=== PATIENT | male | born 1935 | race Caucasian/White ===

== ENCOUNTER 2017-10-20 08:55 | Outpatient (CLI) | payer MEDICARE, BC ==
[~2017-10-20 08:55] MED LIST: ALBU18HF2 INH; ALBU2.5V12 NEB; ALBU8.5H8 IH; BUDE10.2 IH; CALC-1021 PO; CELE-85 PO; CHOL400C8 PO; COU5T PO; DOCU-28 PO; FERR134T2 PO; FLUT16SP26 BOTHNARES; FURO20TA4 PO; HYDR473S48 PO; MONT10TA24 PO; POTA20TA19 PO; QUIN324C PO; [UNRECOGNIZED DRUG - OTHER] PO
[2017-10-20] MEDS ORDERED: mupirocin 2% ointment 22GM ONE (10:25)
== END 2017-10-20 10:32 | disposition home or self-care (01) ==
LOC: WOUND CARE 08:55 → EDSTATUS 09:00 → WOUND CARE 10:32
PROVIDERS: ATTEND Surgery
DX: S81.801D Unspecified open wound, right lower leg, subsequent encounter (principal); I87.2 Venous insufficiency (chronic) (peripheral); M81.0 Age-related osteoporosis without current pathological fracture; I25.10 Atherosclerotic heart disease of native coronary artery without angina pectoris; J44.9 Chronic obstructive pulmonary disease, unspecified; I11.0 Hypertensive heart disease with heart failure; I50.9 Heart failure, unspecified; E66.9 Obesity, unspecified; M17.9 Osteoarthritis of knee, unspecified; Z87.891 Personal history of nicotine dependence; Z85.828 Personal history of other malignant neoplasm of skin; Z79.01 Long term (current) use of anticoagulants; Z68.39 Body mass index [BMI] 39.0-39.9, adult; Z98.42 Cataract extraction status, left eye; Z98.41 Cataract extraction status, right eye; Z86.711 Personal history of pulmonary embolism; Z95.1 Presence of aortocoronary bypass graft; X58.XXXD Exposure to other specified factors, subsequent encounter
CPT/HCPCS: 99215; A6212

== ENCOUNTER 2017-10-26 09:45 | Outpatient (CLI) | payer MEDICARE, BC ==
[2017-10-26] MEDS ORDERED: LIDOcaine 2% 5ml jelly ONE (09:46)
== END 2017-10-26 10:13 | disposition home or self-care (01) ==
LOC: WOUND CARE 09:45 → EDSTATUS 10:00 → WOUND CARE 10:13
PROVIDERS: ATTEND Surgery
DX: S81.801D Unspecified open wound, right lower leg, subsequent encounter (principal); I87.2 Venous insufficiency (chronic) (peripheral); M81.0 Age-related osteoporosis without current pathological fracture; I25.10 Atherosclerotic heart disease of native coronary artery without angina pectoris; J44.9 Chronic obstructive pulmonary disease, unspecified; I11.0 Hypertensive heart disease with heart failure; I50.9 Heart failure, unspecified; E66.9 Obesity, unspecified; M17.9 Osteoarthritis of knee, unspecified; Z87.891 Personal history of nicotine dependence; Z85.828 Personal history of other malignant neoplasm of skin; Z79.01 Long term (current) use of anticoagulants; Z68.39 Body mass index [BMI] 39.0-39.9, adult; Z98.42 Cataract extraction status, left eye; Z98.41 Cataract extraction status, right eye; Z86.711 Personal history of pulmonary embolism; Z95.1 Presence of aortocoronary bypass graft; X58.XXXD Exposure to other specified factors, subsequent encounter
CPT/HCPCS: 99214

== ENCOUNTER 2019-03-06 05:34 | Inpatient (IN) | payer MEDICARE, BC ==
[2019-02-27 12:04] LABS: BASOPHILS % (AUTO) 0.5 % (0-1); EOSINOPHILS # (AUTO) 0.1 X10'3 (0-0.9); EOSINOPHILS % (AUTO) 1.1 % (0-6); LYMPHOCYTES # (AUTO) 1.3 X10'3 (1.1-4.8); LYMPHOCYTES % (AUTO) 22.8 % (21-51); MEAN CORPUSCULAR HEMOGLOBIN 28.5 PG (27.0-31.0); MEAN CORPUSCULAR HGB CONC 33.5 g/dL (33.0-36.5); MEAN CORPUSCULAR VOLUME 84.9 FL (78-98); MEAN PLATELET VOLUME 7.4 FL (7.4-10.4); MONOCYTES # (AUTO) 0.5 X10'3 (0-0.9); MONOCYTES % (AUTO) 8.3 % (2-12); NEUTROPHILS # (AUTO) 3.8 X10'3 (1.8-7.7); NEUTROPHILS % (AUTO) 67.3 % (42-75); PRE OP HEMATOCRIT 45.2 % (42.0-52.0); PRE OP HEMOGLOBIN 15.2 g/dL (14.0-17.9); PRE OP PLATELET COUNT 192 X10'3 (140-440); RED BLOOD COUNT 5.33 X10'6 (4.70-6.10); RED CELL DISTRIBUTION WIDTH 14.6 % (11.5-14.5)
[2019-02-27 12:18] LABS: PRE OP PROTIME 10.9 SECONDS (9.0-12.0)
[2019-02-27 12:21] LABS: ALBUMIN 3.8 G/DL (3.4-5.0); ALKALINE PHOSPHATASE 67 IU/L (46-116); BLOOD UREA NITROGEN 16 MG/DL (7-18); BUN/CREATININE RATIO 19.5 (5.4-32.0); CALCIUM 9.3 MG/DL (8.5-10.1); CHLORIDE 108 MMOL/L (99-107); CREATININE 0.82 MG/DL (0.60-1.10); PRE OP ALT 23 U/L (30-65); PRE OP ANION GAP 8 (8-16); PRE OP AST 19 U/L (10-37); PRE OP BILIRUB, TOTAL 0.6 MG/DL (0.0-1.0); PRE OP GLUCOSE 118 MG/DL (70-104); PRE OP POTASSIUM 3.9 MMOL/L (3.4-5.1); PRE OP SODIUM 144 MMOL/L (135-145); TOTAL CARBON DIOXIDE 28.4 MMOL/L (24-32); TOTAL PROTEIN 7.5 G/DL (6.4-8.2); eGFR 90 ML/MIN
[~2019-03-06] VITALS: Ht 193 cm; Wt 136.4 kg
[2019-03-06] VITALS (19 sets, daily range): BP systolic 120–165; BP diastolic 57–89
[~2019-03-06 05:34] MED LIST changes: -ALBU18HF2 INH; -ALBU8.5H8 IH; -CALC-1021 PO; -CHOL400C8 PO; -COU5T PO; -DOCU-28 PO; -FERR134T2 PO; +FLO0.4C PO; -FLUT16SP26 BOTHNARES; +GUAI600T45 PO; -[UNRECOGNIZED DRUG - OTHER] PO; +ceFAZolin inj. 3,000 MG in normal saline 100ml IV soln 100 ML IV ONE; +famotidine 20mg tablet PO ONE; +ringers solution, lacted 1,000 ML IV SCH; +tranexamic acid inj. 1,000 MG in normal saline 100 ML IV ONE; +vancomycin inj 1,500 MG in normal saline 300ml IV soln IV ONE
[2019-03-06] MEDS ORDERED: tranexamic acid 100mg/ml inj. IV ONE (06:00)
[2019-03-06] MEDS ORDERED: ceFAZolin 1GM/D5W- ADD-VANTAGE 50 ML IV ONE (06:00)
[2019-03-06] MEDS ORDERED: LIDOcaine 1% (10mg/ml) 2ml vial ONE (06:23)
[2019-03-06] MEDS ORDERED: ceFAZolin 1000mg inj ONE (06:38)
[2019-03-06] MEDS ORDERED: cefazolin/dext.iso 2gm/50ml 50 ML IV ONE (06:50)
[2019-03-06] MEDS ORDERED: ringers solution, lacted 1,000 ML IV SCH (07:18)
[2019-03-06] MEDS ORDERED: ROPIVAcaine 0.2%/PF PAIN PUMP 400 ML ADDCANAL SCH (07:18)
[2019-03-06] MEDS ORDERED: tetracaine 1% (10mg/ml) pres. free inj. ONE (07:20)
[2019-03-06] MEDS ORDERED: morphine 4 MG/ML inj SYRINge IV PRN ×2 (07:20)
[2019-03-06] MEDS ORDERED: ondansetron/PF 4mg/2ml inj IV PRN ×3 (07:20→10:25)
[2019-03-06] MEDS ORDERED: labetalol 20mg/4ml (5mg/ml) syringe IV PRN (07:20)
[2019-03-06] MEDS ORDERED: fentaNYL/PF 50MCG/1 ML 2ML syringe IV PRN ×2 (07:20)
[2019-03-06] MEDS ORDERED: hydrALAZINE 20mg/ml inj. IV PRN (07:20)
[2019-03-06] MEDS ORDERED: MIDAZolam 1mg/ml 10ml vial ONE (07:22)
[2019-03-06] MEDS ORDERED: fentaNYL/PF 50MCG/1 ML 2ML syringe ONE (07:22)
[2019-03-06] MEDS ORDERED: morphine /PF 1mg/ml 10ml inj. ONE (07:22)
[2019-03-06] MEDS ORDERED: propofol inj 20 ML IV ONE ×2 (07:35)
[2019-03-06] MEDS ORDERED: LIDOcaine 2% (20mg/ml) 5ml vial ONE (07:35)
[2019-03-06] MEDS ORDERED: ROPIVAcaine 0.5% (5mg/ml) 30ml vial ONE (08:00)
[2019-03-06] MEDS ORDERED: diphenhydrAMINE 50 mg/ml inj IV PRN (08:05)
[2019-03-06] MEDS ORDERED: bisacodyl 10mg suppository rectal RC PRN (10:25)
[2019-03-06] MEDS ORDERED: diphenhydrAMINE 25mg capsule PO PRN (10:25)
[2019-03-06] MEDS ORDERED: HYDROmorphone 1 mg/ml syringe IV PRN (10:25)
[2019-03-06] MEDS ORDERED: HYDROcodone/acetaminophen 10/325mg tab PO PRN (10:25)
[2019-03-06] MEDS ORDERED: magnesium hydroxide 30ml (MOM) UD suspension PO PRN (10:25)
--- NOTE | 2019-03-06 10:25 | NUR ---
Received from OR via , accompanied by Anesthesiologist DR SIMONS and report given by Anesthesiolgist. AWAKE AND MACKENZIE PAIN. VITALS STABLE. DRESSING DI. SENSATION AT THE HIPS. OCHOA WITH LIGHT GUIDO COLORED URINE.
[2019-03-06] MEDS: ROPIVAcaine 0.2%/PF PAIN PUMP 550 ML INTERSCALE SCH ×2 (10:46→19:20)
--- NOTE | 2019-03-06 11:25 | NUR ---
Report called to receiving nurse. Transferred via BED Belongings . Special Issues communicated to receiving nurse. AWAKE AND ORIENTED. VITALS STABLE. DRESSING DI. MACKENZIE PAIN. TO ORTHO RM 4023B AT THIS TIME.
[2019-03-06] MEDS: potassium Cl 20mEq in NS 1,000 ML IV SCH (11:29)
[2019-03-06] MEDS ORDERED: hydrOXYzine 10 MG tablet PO PRN (13:40)
[2019-03-06] MEDS ORDERED: furosemide 20MG tablet PO ONE (15:05)
[2019-03-06] MEDS: ceFAZolin 1GM/D5W- ADD-VANTAGE 50 ML IV SCH ×2 (15:16→23:40)
[2019-03-06] MEDS ORDERED: aspirin 325mg tablet PO SCH (17:30)
[2019-03-06] MEDS ORDERED: vancomycin/NS 1 GM ADD-VANTAGE 250 ML IV SCH (20:00)
[2019-03-06] MEDS: budesonide 0.5mg/2ml UD nebule IH SCH (20:00)
[2019-03-06] MEDS: guaiFENesin ER 600mg tablet PO SCH (20:24)
[2019-03-06] MEDS: celeCOXIB 100mg capsule PO SCH (20:24)
[2019-03-06] MEDS: sennosides 8.6mg tablet PO SCH (20:24)
[2019-03-06] MEDS: montelukast 10mg tablet PO SCH (20:24)
[2019-03-06] MEDS: HYDROcodone/acetaminophen 10/325mg tab PO PRN (20:31)
[2019-03-07] VITALS (7 sets, daily range): BP systolic 98–142; BP diastolic 45–75
--- NOTE | 2019-03-07 06:00 | NUR ---
Recieved report from Nemo DURAN. Pt awake in room awaiting PT.
[2019-03-07 06:02] LABS: BASOPHILS % (AUTO) 0.2 % (0-1); EOSINOPHILS # (AUTO) 0.1 X10'3 (0-0.9); EOSINOPHILS % (AUTO) 0.7 % (0-6); HEMATOCRIT 37.1 % (42.0-52.0); HEMOGLOBIN 12.3 g/dl (14.0-17.9); LYMPHOCYTES % (AUTO) 13.3 % (21-51); MEAN CORPUSCULAR HEMOGLOBIN 28.2 PG (27.0-31.0); MEAN CORPUSCULAR HGB CONC 33.2 g/dL (33.0-36.5); MEAN PLATELET VOLUME 7.7 FL (7.4-10.4); MONOCYTES % (AUTO) 12.4 % (2-12); NEUTROPHILS # (AUTO) 5.7 X10'3 (1.8-7.7); NEUTROPHILS % (AUTO) 73.4 % (42-75); PLATELET COUNT 166 X10'3 (140-440); RED BLOOD COUNT 4.36 X10'6 (4.70-6.10); RED CELL DISTRIBUTION WIDTH 14.3 % (11.5-14.5); WHITE BLOOD COUNT 7.8 X10'3 (4.5-11.0)
--- NOTE | 2019-03-07 06:18 | NUR ---
REPORT GIVEN TO RENEE MONACO.
[2019-03-07 06:46] LABS: ALANINE AMINOTRANSFERASE 19 U/L (12-78); ALBUMIN 2.9 G/DL (3.4-5.0); ALBUMIN/GLOBULIN RATIO 0.9 (1.1-1.5); ALKALINE PHOSPHATASE 54 IU/L (46-116); ANION GAP 6 (8-16); ASPARTATE AMINO TRANSFERASE 17 U/L (10-37); BILIRUBIN,TOTAL 1.2 MG/DL (0.1-1.0); BLOOD UREA NITROGEN 14 MG/DL (7-18); BUN/CREATININE RATIO 14.3 (5.4-32.0); CHLORIDE 105 MMOL/L (99-107); CREATININE 0.98 MG/DL (0.60-1.10); GLUCOSE 114 MG/DL (70-104); POTASSIUM 4.3 MMOL/L (3.5-5.1); SODIUM 141 MMOL/L (135-145); TOTAL CARBON DIOXIDE 30.1 MMOL/L (24-32); eGFR 73 ML/MIN
[2019-03-07] MEDS: potassium Cl 20mEq in NS 1,000 ML IV SCH ×3 (07:02→16:22)
[2019-03-07] MEDS: guaiFENesin ER 600mg tablet PO SCH ×2 (08:00→20:58)
[2019-03-07] MEDS: celeCOXIB 100mg capsule PO SCH ×2 (08:30→20:58)
[2019-03-07] MEDS: furosemide 20MG tablet PO SCH (08:32)
[2019-03-07] MEDS: potassium Cl 20 mEq SR tablet PO SCH (08:33)
[2019-03-07] MEDS: tamsulosin 0.4mg capsule PO SCH (08:34)
[2019-03-07] MEDS: aspirin 81mg tab.chew PO SCH ×2 (08:37→16:48)
[2019-03-07] MEDS: budesonide 0.5mg/2ml UD nebule IH SCH ×2 (09:03→19:38)
[2019-03-07] MEDS: albuterol 2.5 MG/3 ML nebule NEB PRN ×2 (09:03→19:38)
--- NOTE | 2019-03-07 09:46 | NUR ---
Joint replacement consult: Pt PO 50-75% avg few meals so far post-op. LBM 03/06. Pt reports lower PO at home recently r/t fear of constipation post-op which has happened on prior surgeries. Pt/SO seen by RD for written/verbal high protein ed w/ RD contact information provided. Pt agrees to vanilla ensure pudding TIDWM; dietary notified. Addendum: 03/07/19 at [address] Amended: Links added.
[2019-03-07] MEDS: HYDROcodone/acetaminophen 10/325mg tab PO PRN ×2 (10:23→19:21)
--- NOTE | 2019-03-07 12:15 | NUR ---
Student Medication Administration:For this medication-pass time frame [id number], all medications were reviewed,administered and documented per hospital policy by Cheryl Webb. Student documentation:I have reviewed and agree with all interventions, assessments performed and documented by Cheryl Webb.
--- NOTE | 2019-03-07 12:21 | NUR ---
Reported patient back to Coleen DURAN.
--- NOTE | 2019-03-07 12:36 | NUR ---
BLADDER SCAN PT, 386ML. PLACED OCHOA 16 SLOVAK PER PROTOCOL. PT TOLERATED WELL.
[2019-03-07] MEDS: montelukast 10mg tablet PO SCH (20:57)
[2019-03-07] MEDS: sennosides 8.6mg tablet PO SCH (20:58)
[2019-03-07] MEDS: diphenhydrAMINE 25mg capsule PO PRN (20:59)
[2019-03-07] MEDS: acetaminophen 325mg tablet PO PRN (22:48)
[2019-03-08] MEDS: potassium Cl 20mEq in NS 1,000 ML IV SCH
[2019-03-08] MEDS: HYDROcodone/acetaminophen 10/325mg tab PO PRN ×2 (05:14→10:30)
[2019-03-08] MEDS: ROPIVAcaine 0.2%/PF PAIN PUMP 550 ML INTERSCALE SCH (05:15)
--- NOTE | 2019-03-08 05:20 | NUR ---
placed new ropivacaine ball. started at 10cc/hr
[2019-03-08] MEDS: acetaminophen 325mg tablet PO PRN ×3 (05:38→23:41)
[2019-03-08 06:00] VITALS: BP 132/62
[2019-03-08 06:05] LABS: BASOPHILS % (AUTO) 0.2 % (0-1); EOSINOPHILS % (AUTO) 0.2 % (0-6); HEMATOCRIT 36.3 % (42.0-52.0); HEMOGLOBIN 12.3 g/dl (14.0-17.9); LYMPHOCYTES # (AUTO) 0.4 X10'3 (1.1-4.8); LYMPHOCYTES % (AUTO) 7.6 % (21-51); MEAN CORPUSCULAR HEMOGLOBIN 28.9 PG (27.0-31.0); MEAN CORPUSCULAR HGB CONC 33.9 g/dL (33.0-36.5); MEAN CORPUSCULAR VOLUME 85.4 FL (78-98); MEAN PLATELET VOLUME 7.7 FL (7.4-10.4); MONOCYTES # (AUTO) 0.6 X10'3 (0-0.9); NEUTROPHILS # (AUTO) 4.6 X10'3 (1.8-7.7); PLATELET COUNT 143 X10'3 (140-440); RED BLOOD COUNT 4.26 X10'6 (4.70-6.10); RED CELL DISTRIBUTION WIDTH 14.6 % (11.5-14.5); WHITE BLOOD COUNT 5.6 X10'3 (4.5-11.0)
--- NOTE | 2019-03-08 06:31 | NUR ---
Problems reprioritized. Patient report given, questions answered & plan of care reviewed with RENEE ESQUIVEL.
--- NOTE | 2019-03-08 06:33 | NUR ---
Patient in room ORTHO 4021. I have received report from Tierra DURAN and had the opportunity to ask questions and assume patient care.
[2019-03-08 06:48] LABS: ALANINE AMINOTRANSFERASE 19 U/L (12-78); ALBUMIN 2.7 G/DL (3.4-5.0); ALBUMIN/GLOBULIN RATIO 0.8 (1.1-1.5); ALKALINE PHOSPHATASE 51 IU/L (46-116); ANION GAP 7 (8-16); ASPARTATE AMINO TRANSFERASE 19 U/L (10-37); BILIRUBIN,TOTAL 1.1 MG/DL (0.1-1.0); BLOOD UREA NITROGEN 17 MG/DL (7-18); CALCIUM 8.5 MG/DL (8.5-10.1); CHLORIDE 106 MMOL/L (99-107); CREATININE 0.85 MG/DL (0.60-1.10); GLUCOSE 121 MG/DL (70-104); POTASSIUM 4.1 MMOL/L (3.5-5.1); SODIUM 139 MMOL/L (135-145); TOTAL PROTEIN 6.1 G/DL (6.4-8.2); eGFR 87 ML/MIN
[2019-03-08] MEDS: budesonide 0.5mg/2ml UD nebule IH SCH ×2 (07:36→20:00)
[2019-03-08] MEDS: albuterol 2.5 MG/3 ML nebule NEB PRN (07:36)
[2019-03-08] MEDS: celeCOXIB 100mg capsule PO SCH ×2 (08:21→20:29)
[2019-03-08] MEDS: tamsulosin 0.4mg capsule PO SCH (08:21)
[2019-03-08] MEDS: furosemide 20MG tablet PO SCH (08:21)
[2019-03-08] MEDS: aspirin 81mg tab.chew PO SCH ×2 (08:21→17:54)
[2019-03-08] MEDS: guaiFENesin ER 600mg tablet PO SCH ×2 (08:22→20:29)
[2019-03-08] MEDS: potassium Cl 20 mEq SR tablet PO SCH (08:22)
[2019-03-08 10:00] VITALS: BP 135/47
[2019-03-08 18:00] VITALS: BP 124/63
[2019-03-08] MEDS ORDERED: acetaminophen 325mg tablet PO PRN (18:00)
--- NOTE | 2019-03-08 18:12 | NUR ---
Problems reprioritized. Patient report given, questions answered & plan of care reviewed with Tierra DURAN.
--- NOTE | 2019-03-08 18:21 | NUR ---
Problems reprioritized. Patient report given, questions answered & plan of care reviewed with RENEE ESQUIVEL.
[2019-03-08] MEDS: montelukast 10mg tablet PO SCH (20:29)
[2019-03-08] MEDS: diphenhydrAMINE 25mg capsule PO PRN (20:32)
[2019-03-08] MEDS: sennosides 8.6mg tablet PO SCH (21:00)
[2019-03-08 22:09] VITALS: BP 163/72
[2019-03-09] MEDS: acetaminophen 325mg tablet PO PRN (05:21)
[2019-03-09 05:54] LABS: BASOPHILS % (AUTO) 0.2 % (0-1); EOSINOPHILS # (AUTO) 0.1 X10'3 (0-0.9); EOSINOPHILS % (AUTO) 1.1 % (0-6); HEMATOCRIT 36.9 % (42.0-52.0); HEMOGLOBIN 12.4 g/dl (14.0-17.9); LYMPHOCYTES # (AUTO) 0.8 X10'3 (1.1-4.8); LYMPHOCYTES % (AUTO) 14.5 % (21-51); MEAN CORPUSCULAR HEMOGLOBIN 28.7 PG (27.0-31.0); MEAN CORPUSCULAR HGB CONC 33.5 g/dL (33.0-36.5); MEAN CORPUSCULAR VOLUME 85.5 FL (78-98); MONOCYTES # (AUTO) 0.7 X10'3 (0-0.9); MONOCYTES % (AUTO) 13.7 % (2-12); NEUTROPHILS # (AUTO) 3.8 X10'3 (1.8-7.7); NEUTROPHILS % (AUTO) 70.5 % (42-75); PLATELET COUNT 186 X10'3 (140-440); RED BLOOD COUNT 4.31 X10'6 (4.70-6.10); RED CELL DISTRIBUTION WIDTH 14.1 % (11.5-14.5); WHITE BLOOD COUNT 5.4 X10'3 (4.5-11.0)
[2019-03-09 06:00] VITALS: BP 148/70
[2019-03-09] MEDS ORDERED: cefazolin/dext.iso 2gm/50ml 50 ML IV ONE (06:00)
--- NOTE | 2019-03-09 06:15 | NUR ---
Problems reprioritized. Patient report given, questions answered & plan of care reviewed with RENEE ESQUIVEL.
[2019-03-09 06:18] LABS: ALANINE AMINOTRANSFERASE 21 U/L (12-78); ALBUMIN 2.8 G/DL (3.4-5.0); ALBUMIN/GLOBULIN RATIO 0.7 (1.1-1.5); ALKALINE PHOSPHATASE 55 IU/L (46-116); ANION GAP 6 (8-16); ASPARTATE AMINO TRANSFERASE 21 U/L (10-37); BILIRUBIN,TOTAL 0.7 MG/DL (0.1-1.0); BLOOD UREA NITROGEN 14 MG/DL (7-18); BUN/CREATININE RATIO 18.7 (5.4-32.0); CALCIUM 8.6 MG/DL (8.5-10.1); CHLORIDE 105 MMOL/L (99-107); CREATININE 0.75 MG/DL (0.60-1.10); GLUCOSE 102 MG/DL (70-104); POTASSIUM 3.9 MMOL/L (3.5-5.1); SODIUM 139 MMOL/L (135-145); TOTAL CARBON DIOXIDE 27.6 MMOL/L (24-32); TOTAL PROTEIN 6.6 G/DL (6.4-8.2); eGFR > 90 ML/MIN
--- NOTE | 2019-03-09 06:33 | NUR ---
Patient in room ORTHO 4021. I have received report from Tierra DURAN and had the opportunity to ask questions and assume patient care.
[2019-03-09] MEDS: aspirin 81mg tab.chew PO SCH (07:25)
[2019-03-09] MEDS: guaiFENesin ER 600mg tablet PO SCH (07:25)
[2019-03-09] MEDS: celeCOXIB 100mg capsule PO SCH (07:25)
[2019-03-09] MEDS: tamsulosin 0.4mg capsule PO SCH (07:25)
[2019-03-09] MEDS: potassium Cl 20 mEq SR tablet PO SCH (07:26)
[2019-03-09] MEDS: furosemide 20MG tablet PO SCH (07:26)
[2019-03-09] MEDS: albuterol 2.5 MG/3 ML nebule NEB PRN (08:12)
[2019-03-09] MEDS: budesonide 0.5mg/2ml UD nebule IH SCH (08:12)
[2019-03-09 09:43] VITALS: BP 135/48
--- NOTE | 2019-03-09 12:39 | NUR ---
I have reviewed and agree with all medications administered and interventions performed by [facility] Student(GEORGIE CANNON)
--- NOTE | 2019-03-09 14:30 | NUR ---
Roprocaine pump replaced today before transfer to [facility].
--- NOTE | 2019-03-09 16:36 | NUR ---
Patient stable for transfer to [facility] today at 1500. Report called to Caitlyn. TED torres and all belongings sent with patient.
== END 2019-03-09 15:10 | DRG 470 ==
LOC: PAS IN 05:34 → EDSTATUS 07:30 → ORTHO 4S 11:35
PROVIDERS: ADMIT Orthopaedic Surgery; ATTEND Orthopaedic Surgery
PROC: 3E0T3BZ Introduction of Anesthetic Agent into Peripheral Nerves and Plexi, Percutaneous Approach (ICD-10-PCS; 2019-03-06)
PROC: 0SRD069 Replacement of Left Knee Joint with Oxidized Zirconium on Polyethylene Synthetic Substitute, Cemented, Open Approach (ICD-10-PCS; principal; 2019-03-06 07:15)
DX: M17.12 Unilateral primary osteoarthritis, left knee (principal); D62 Acute posthemorrhagic anemia; E66.9 Obesity, unspecified; F32.9 Major depressive disorder, single episode, unspecified; J43.9 Emphysema, unspecified; I25.10 Atherosclerotic heart disease of native coronary artery without angina pectoris; N40.1 Benign prostatic hyperplasia with lower urinary tract symptoms; R33.8 Other retention of urine; G62.9 Polyneuropathy, unspecified; J98.6 Disorders of diaphragm; R60.0 Localized edema; Z86.711 Personal history of pulmonary embolism; Z68.36 Body mass index [BMI] 36.0-36.9, adult; Z87.891 Personal history of nicotine dependence; Z95.5 Presence of coronary angioplasty implant and graft; Z79.899 Other long term (current) drug therapy
CPT/HCPCS: 36415; 80053; 82948; 85025; 85610; 85730; 86885; 86900; 86901; 86920; 87081; 94640; 94760; 97116; 97162; 97530; 97535; A4215; A6455; A7000; C1713; C1758; C1776; G0378; J0690; J1170; J1200; J2001; J2250; J2270; J2704; J2795; J3010; J3370; J3480; J7120; J7626; Q0163

== ENCOUNTER 2021-01-21 05:43 | Emergency (ER) | payer MEDICARE, BC ==
[~2021-01-21] VITALS: Ht 188 cm; Wt 140.0 kg
[~2021-01-21 05:43] MED LIST changes: -HYDR473S48 PO; -MONT10TA24 PO; +MONT10TA32 PO; -ceFAZolin inj. 3,000 MG in normal saline 100ml IV soln 100 ML IV ONE; -famotidine 20mg tablet PO ONE; -ringers solution, lacted 1,000 ML IV SCH; -tranexamic acid inj. 1,000 MG in normal saline 100 ML IV ONE; -vancomycin inj 1,500 MG in normal saline 300ml IV soln IV ONE
[2021-01-21 06:29] VITALS: BP 158/59
== END 2021-01-21 06:55 | disposition home or self-care (01) ==
LOC: ER 05:43
DX: U07.1 COVID-19 (principal); I50.9 Heart failure, unspecified
CPT/HCPCS: 71045; 99283

== ENCOUNTER 2022-11-24 15:22 | Outpatient (CLI) | payer MEDICARE, BC ==
[~2022-11-24 15:22] MED LIST changes: +MONT-40 PO; -MONT10TA32 PO; +POTA-207 PO; -POTA20TA19 PO
== END 2022-11-24 23:59 | disposition home or self-care (01) ==
LOC: VAS 15:22
PROVIDERS: ATTEND Family Medicine
DX: M79.89 Other specified soft tissue disorders (principal)
CPT/HCPCS: 93970

== ENCOUNTER 2023-04-10 12:31 | Emergency (ER) | payer MEDICARE, BC ==
[~2023-04-10] VITALS: Ht 188 cm; Wt 145.4 kg
[~2023-04-10 12:31] MED LIST changes: +CELE-127 PO; -CELE-85 PO
[2023-04-10] MEDS ORDERED: LIDOcaine 1% 30ml preserv. free vial SQ STA (12:51)
[2023-04-10] MEDS ORDERED: TETanus/Pertussis (Acell)/Diphther VAC/PF (Tdap-Adult) 0.5ml syringe IMVAC ONE (12:55)
[2023-04-10 14:31] VITALS: BP 168/72; PULSE 72; RESP 15; TEMP 97.9; O2SAT 97
== END 2023-04-10 15:18 | disposition home or self-care (01) ==
LOC: ER 12:32
DX: S81.812A Laceration without foreign body, left lower leg, initial encounter (principal); S50.312A Abrasion of left elbow, initial encounter; I50.9 Heart failure, unspecified; E11.9 Type 2 diabetes mellitus without complications; Z79.2 Long term (current) use of antibiotics; Z79.899 Other long term (current) drug therapy; W19.XXXA Unspecified fall, initial encounter; Y93.89 Activity, other specified; Y92.89 Other specified places as the place of occurrence of the external cause; Y99.8 Other external cause status
CPT/HCPCS: 12002; 73590; 99283; J7030; A4615; A6258; A6446; A6449

== ENCOUNTER 2023-09-12 15:26 | Emergency (ER) | payer MEDICARE, BC ==
[~2023-09-12] VITALS: Ht 188 cm; Wt 142.3 kg
[2023-09-12 16:13] VITALS: BP 116/75; PULSE 69; RESP 18; TEMP 98.3; O2SAT 95
[2023-09-12] MEDS ORDERED: CEPH-585 PO (17:00)
== END 2023-09-12 18:04 | disposition home or self-care (01) ==
LOC: ER 15:26
DX: S81.812A Laceration without foreign body, left lower leg, initial encounter (principal); I50.9 Heart failure, unspecified; E11.9 Type 2 diabetes mellitus without complications; Z79.899 Other long term (current) drug therapy; Z79.2 Long term (current) use of antibiotics; W22.8XXA Striking against or struck by other objects, initial encounter; Y93.89 Activity, other specified; Y92.89 Other specified places as the place of occurrence of the external cause; Y99.8 Other external cause status
CPT/HCPCS: 12001; 99283; A6446; A6449